=== PATIENT | female | born 1995 | race American Indian/Alaskan Native ===

== ENCOUNTER 2020-04-28 08:01 | Emergency (ER) | payer OTHER ==
--- NOTE | 2020-04-28 08:39 | Emergency Department Report ---
ED Female HPI - General Chief complaint: Urogenital-Female Stated complaint: VAGINA PAIN/CHEST PAIN Time Seen by Provider: 04/28/20 08:14 Source: patient Mode of arrival: Ambulatory Limitations: No Limitations - History of Present Illness Initial comments: 25-year-old -[place]ones[place] female presents to the emergency room complaining of vaginal pain with discharge x5 days. She reports of nausea and painful urination. Patient also complains of shortness of breath with pain when she takes a deep breath. Patient denies any cough no fever no chills. She has no past medical history she is 1 para 1 last menstrual period 03/28/2020. She takes no medications on a daily basis and does not have a primary care provider. MD Complaint: vaginal discharge, other (vaginal area) Onset/Timin -: days(s) Location: labia Radiation: suprapubic Severity scale (0 -10): 8 Quality: sharp Consistency: intermittent Worsens with: urination, intercourse Are you Now?: No Last Menstrual Period: 03/28/20 EDC: 01/02/21 Associated Symptoms: vaginal discharge, abdominal pain (Pelvic), nausea/vomiting (Nauseous no vomiting), dysuria, shortness of breath. denies: fever/chills, hematuria - Related Data Sexually active: Yes : 1 Para: 1 Previous Rx's Medication Instructions Recorded Last Taken Type metroNIDAZOLE [Flagyl] 500 mg PO Q12HR 7 Days #14 tab 04/28/20 Unknown Rx Allergies Allergy/AdvReac Type Severity Reaction Status Date / Time Penicillins Allergy Swelling Verified 04/28/20 08:05 ED Review of Systems ROS: Stated complaint: VAGINA PAIN/CHEST PAIN Other details as noted in HPI Comment: All other systems reviewed and negative Constitutional: no symptoms reported ED Past Medical Hx - Past Medical History Previous Medical History?: No - Surgical History Past Surgical History?: No - Social History Smoking Status: Never Smoker Substance Use Type: None - Medications Home Medications: Home Medications Medication Instructions Recorded Confirmed Last Taken Type metroNIDAZOLE [Flagyl] 500 mg PO Q12HR 7 Days #14 tab 04/28/20 Unknown Rx ED Physical Exam - General Limitations: No Limitations General appearance: alert, in no apparent distress - Head Head exam: Present: atraumatic, normocephalic - Eye Eye exam: Present: normal appearance - ENT ENT exam: Present: mucous membranes moist - Neck Neck exam: Present: full ROM - Respiratory Respiratory exam: Present: normal lung sounds bilaterally. Absent: respiratory distress, accessory muscle use - Cardiovascular Cardiovascular Exam: Present: regular rate, normal rhythm. Absent: systolic murmur, diastolic murmur, rubs, gallop - GI/Abdominal GI/Abdominal exam: Present: soft, normal bowel sounds. Absent: distended, tenderness - External exam: Present: normal external exam. Absent: erythema, swelling, lesions Speculum exam: Present: vaginal discharge. Absent: erythema Bi-manual exam: Present: adnexal tenderness. Absent: uterine enlargement, uterine tenderness - Extremities Exam Extremities exam: Present: normal inspection, full ROM - Back Exam Back exam: Present: normal inspection - Neurological Exam Neurological exam: Present: alert, oriented X3, normal gait - Psychiatric Psychiatric exam: Present: normal affect, normal mood - Skin Skin exam: Present: warm, dry, intact, normal color. Absent: rash ED Course Vital Signs 04/28/20 08:05 Temperature 97.9 F Pulse Rate 80 Respiratory 16 Rate Blood Pressure 109/65 O2 Sat by Pulse 100 Oximetry ED Medical Decision Making - Lab Data Laboratory Tests 04/28/20 Unknown Urine Color Straw Urine Turbidity Clear Urine pH 6.0 Ur Specific [place] 1.008 Urine Protein <15 mg/dl Urine Glucose (UA) Neg Urine Ketones Neg Urine Blood Neg Urine Nitrite Neg Urine Bilirubin Neg Urine Urobilinogen < 2.0 Ur Leukocyte Esterase Neg Urine WBC (Auto) < 1.0 Urine RBC (Auto) 1.0 U Epithel Cells (Auto) 1.0 - Radiology Data Radiology results: report reviewed Patient: CARLO HERRERA MR#: [id number] : 1995 Acct:[id number] Age/Sex: 25 / F ADM Date: 04/28/20 Loc: ED Attending Dr: Ordering Physician: LOLIS BARRAGAN Date of Service: 04/28/20 Procedure(s): XR chest routine 2V Accession Number(s): [id number] cc: LOLIS BARRAGAN Fluoro Time In Minutes: CHEST PA AND LATERAL VIEWS INDICATION: sob,cough and rales. COMPARISON: None FINDINGS: Support devices: None Heart: Normal Lungs/Pleura: No acute pulmonary or pleural findings. IMPRESSION: 1. No significant abnormality. Signer Name: Lexa Garcia MD Signed: 04/28/2020 10:47 AM Workstation Name: [id number] Transcribed By: TM Dictated By: Lexa Garcia MD Electronically Authenticated By: Lexa Garcia MD Signed Date/Time: 04/28/201046 DD/ 1046 TD/TT: - Medical Decision Making 25-year-old -[place]onese female presents to the emergency room complaining of vaginal pain with discharge x5 days. She reports of nausea and painful urination. Patient also complains of shortness of breath with pain when she takes a deep breath. Patient denies any cough no fever no chills. She has no past medical history she is 1 para 1 last menstrual period 03/28/2020. She takes no medications on a daily basis and does not have a primary care provider. Pelvic exam performed with culture sent to the lab. Chest x-ray has been ordered. Urinalysis and urine test has been ordered. Wet prep microbiology shows no yeast no trichomonas but greater than 20% clue cells which is indicative of bacterial vaginosis. Critical care attestation.: If time is entered above; I have spent that time in minutes in the direct care of this critically ill patient, excluding procedure time. ED Disposition Clinical Impression: Bacterial vaginosis, Shortness of breath Disposition: - TO HOME OR SELFCARE Is pt being admited?: No Does the pt Need Aspirin: No Condition: Stable Instructions: Bacterial Vaginosis (ED), Bacterial Vaginosis, [id number] Additional Instructions: Chest x-ray is negative for any acute abnormalities. Vaginal culture shows you have a bacterial vaginosis. Your gonorrhea and Chlamydia test is pending. You can bring your ID back to the emergency room and discussed to have medical records bring up your results. I do recommend you follow-up at the health department for further and complete STD evaluation. As I spoke to you earlier your lung exam is within normal limits you are satting or holding your oxygen at 100% on room air. I recommend for you to follow-up with a primary care provider. I also recommend for you to have a Covid test I have given you a paperwork to show where there is community testing. Prescriptions: metroNIDAZOLE [Flagyl] 500 mg PO Q12HR 7 Days #14 tab Referrals: PRIMARY CARE, [Primary Care Provider] - 3-5 Days [facility] [Outside] - 3-5 Days [facility] [Provider Group] - 3-5 Days Forms: STI Treatment and Prevention
[2020-04-28 09:52] LABS: Bilirubin,Urine NEG (Negative); Blood,Urine NEG (Negative); Color,Urine Straw (Yellow); Protein,Urine <15 mg/dL mg/dL (Negative); Urobilinogen,Urine < 2.0 mg/dL (<2.0); WBC,Urine < 1.0 /HPF (0.0-6.0)
--- NOTE | 2020-04-28 10:51 | XRay Report ---
CHEST PA AND LATERAL VIEWS INDICATION: sob,cough and rales. COMPARISON: None FINDINGS: Support devices: None Heart: Normal Lungs/Pleura: No acute pulmonary or pleural findings. IMPRESSION: 1. No significant abnormality. Signer Name: Lexa Garcia MD Signed: 04/28/2020 10:47 AM Workstation Name: [id number]
[2020-04-28 11:07] VITALS: BP 112/74
== END 2020-04-28 11:09 | disposition home or self-care (01) ==
LOC: ED 08:01
DX: N76.0 Acute vaginitis (principal); B96.89 Other specified bacterial agents as the cause of diseases classified elsewhere; R06.02 Shortness of breath; Z79.899 Other long term (current) drug therapy; Z88.0 Allergy status to penicillin
CPT/HCPCS: 36415; 71046; 81001; 84702; 87210; 87591